=== PATIENT | male | born 1970 ===

== ENCOUNTER 2017-05-02 13:03 | Emergency (ER) | payer SELFPAY ==
--- NOTE | 2017-05-02 13:24 | UC ---
Abdominal Pain Male HPI - HPI Summary HPI Summary: 5 DAYS OF INTERMITTENT RUQ AND FLANK PAIN. GETTING WORSE. ARRIVED TO [place] 3 DAYS AGO. NO FEVER. NO NAUSEA. NO URINARY SX. NO DIARRHEA OR CONSTIPATION. NO CLEAR TRIGGER OR ASSOCIATION WITH ACTIVITY OR FOOD. CURRENTLY PAIN IS NOT PRESENT. - History of Current Complaint Chief Complaint: UCAbdominalPain Stated Complaint: PAIN IN RIB AREA Time Seen by Provider: 05/02/17 13:13 Hx Obtained From: Patient, Family/Wireless Engineer - DAUGHTER, Onset/Duration: Gradual Onset, Lasting Days, Still Present Timing: Intermittent Episodes Lasting: Severity Initially: Moderate Severity Currently: None Pain Intensity: 6 Pain Scale Used: 0-10 Numeric Location: Discrete At: RUQ Radiates: Yes Radiates to: Flank Character: Sharp Aggravating Factor(s):: Nothing Alleviating Factor(s): Spontaneous Resolution Associated Signs And Symptoms: Negative: Diaphoresis, Fever, Constipation, Blood in Stool, Urinary Symptoms, Decreased Appetite, Nausea, Vomiting, Diarrhea - Allergies/Home Medications Allergies/Adverse Reactions: Allergies Allergy/AdvReac Type Severity Reaction Status Date / Time No Known Allergies Allergy Verified 05/02/17 13:20 Home Medications: Home Medications NK [No Home Medications Reported] 05/02/17 [History Confirmed 05/02/17] PMH/Surg Hx/FS Hx/Imm Hx Previously Healthy: Yes - Surgical History Surgical History: Yes Surgery Procedure, Year, and Place: hernia - Family History Known Family History: Negative: Hypertension - Social History Alcohol Use: None Substance Use Type: None Smoking Status (MU): Never Smoked Tobacco Review of Systems Constitutional: Negative Respiratory: Negative Cardiovascular: Negative Gastrointestinal: Abdominal Pain Genitourinary: Negative All Other Systems Reviewed And Are Negative: Yes Physical Exam Triage Information Reviewed: Yes Appearance: Well-Appearing, No Pain Distress, Well-Nourished Vital Signs: Initial Vital Signs Temp 97.9 F 05/02/17 13:09 Pulse 64 05/02/17 13:09 Resp 16 05/02/17 13:09 BP 100/64 05/02/17 13:09 Pulse Ox 100 05/02/17 13:09 Vital Signs Reviewed: Yes Eyes: Positive: Conjunctiva Clear ENT: Positive: Hearing grossly normal Neck: Positive: Supple Respiratory Exam: Normal Cardiovascular Exam: Normal Abdomen Description: Positive: Nontender - NEG DUEÑAS'S SIGN, Soft. Negative: CVA Tenderness (R), CVA Tenderness (L), Distended, Guarding Bowel Sounds: Positive: Present Musculoskeletal: Positive: No Edema Neurological: Positive: Alert Psychological: Positive: Normal Response To Family, Age Appropriate Behavior Skin: Negative: rashes Diagnostics - Laboratory Diagnostic Studies Completed/Ordered: URINE DIP SP. GR. 1.010, TRACE BLOOD - LYSED - Radiology RUQ US Xray Interpretation: No Acute Changes Radiology Interpretation Completed By: Radiologist Abd Pain Male Course/Dx - Differential Dx/Clinical Impression Provider Diagnoses: RUQ PAIN Discharge - Discharge Plan Condition: Stable Disposition: HOME Patient Education Materials: Abdominal Pain (ED) Referrals: No Primary Care Phys,NOPCP [Primary Care Provider] - Additional Instructions: UNCLEAR ETIOLOGY OF YOUR SYMPTOMS. URINE TEST WAS UNREMARKABLE. ULTRASOUND NEGATIVE. PHYSICAL EXAM UNREVEALING. IF YOUR SYMPTOMS RECUR PLEASE GO TO THE EMERGENCY ROOM. IBUPROFEN MAX DOSE: 600MG (3 TABS) EVERY 6 HRS OR 800MG (4 TABS) EVERY 8 HRS TYLENOL MAX DOSE: 1000MG (2 EXTRA STRENGTH TABS) EVERY 8 HRS
--- NOTE | 2017-05-02 14:29 | RAD ---
INDICATION: Right upper quadrant and right flank pain. COMPARISON: There are no prior studies available for comparison. TECHNIQUE: Multiple real-time images of the right upper quadrant were obtained. FINDINGS: The gallbladder appear normal. No gallbladder wall thickening or pericholecystic fluid is present. No intra or extrahepatic ductal distention is present. The common bile duct measured 0.4 cm in diameter. The liver is normal in size without significant focal abnormality. The pancreas is obscured by overlying bowel gas. The right kidney is normal in size without evidence for hydronephrosis. IMPRESSION: NEGATIVE EXAM.
== END 2017-05-02 14:51 | disposition home or self-care (01) ==
LOC: UCEAST 13:03
DX: R10.11 Right upper quadrant pain (principal)
CPT/HCPCS: 76705; 81003; 99201; G0463